=== PATIENT | male | born 1995 | race African-American/Black ===

== ENCOUNTER 2016-08-18 13:36 | Emergency (ER) | payer BC ==
[~2016-08-18] VITALS: Ht 177.8 cm; Wt 75.0 kg
[~2016-08-18 13:36] MED LIST: DICL50 PO; HYDR-3533 PO
[2016-08-18 13:38] VITALS: BP 128/78; PULSE 72; RESP 16; TEMP 98; O2SAT 97
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
[2016-08-18] MEDS ORDERED: HYDR-3533 PO ×2 (14:42→14:43)
== END 2016-08-18 15:14 | disposition home or self-care (01) ==
LOC: NEPB 13:36
DX: S62.102A Fracture of unspecified carpal bone, left wrist, initial encounter for closed fracture (principal); V09.20XA Pedestrian injured in traffic accident involving unspecified motor vehicles, initial encounter; Y93.9 Activity, unspecified; Y92.89 Other specified places as the place of occurrence of the external cause; Y99.9 Unspecified external cause status
CPT/HCPCS: 29125; 73110

== ENCOUNTER 2017-09-30 11:54 | Emergency (ER) | payer BC ==
[~2017-09-30] VITALS: Ht 177.8 cm; Wt 76.0 kg
[2017-09-30 11:55] VITALS: BP 141/92; PULSE 65; RESP 16; TEMP 97.9; O2SAT 100
[2017-09-30] MEDS ORDERED: IOHEXOL 350 MG/ML 10 ML VIAL (for RAD DIAG) IVCONTRAST ONE (11:55)
[2017-09-30] MEDS ORDERED: SODIUM CHLOR 0.9% 1000 ML INJ 1,000 ML IV SCH (12:19)
[2017-09-30] MEDS ORDERED: SODIUM CHLORIDE 0.9% FLUSH 10 ML FLUSH IV FLUSH PRN (12:30)
[2017-09-30 12:50] LABS: AUTOMATED NEUTROPHIL # 2.6 TH/MM3 (1.8-7.7); BASOPHIL % 0.7 % (0.0-2.0); EOSINOPHIL # 0.3 TH/MM3 (0-0.4); EOSINOPHIL % 4.2 % (0.0-4.0); HEMATOCRIT 43.3 % (39.0-51.0); HEMOGLOBIN 14.8 GM/DL (13.0-17.0); LYMPH % 41.8 % (9.0-44.0); LYMPHOCYTE # 2.6 TH/MM3 (1.0-4.8); MEAN CELL VOLUME 85.6 FL (80.0-100.0); MEAN CORPUSCULAR HEMOGLOBIN 29.3 PG (27.0-34.0); MEAN CORPUSCULAR HGB CONC 34.2 % (32.0-36.0); MONO % 11.1 % (0.0-8.0); MONOCYTE # 0.7 TH/MM3 (0-0.9); NEUT % 42.2 % (16.0-70.0); PLATELET COUNT 270 TH/MM3 (150-450); RED BLOOD COUNT 5.06 MIL/MM3 (4.50-5.90); RED CELL DISTRIBUTION WIDTH 13.6 % (11.6-17.2); WHITE BLOOD COUNT 6.2 TH/MM3 (4.0-11.0)
--- NOTE | 2017-09-30 12:56 | PD ---
HPI Chief Complaint: ENT Complaint Time Seen by Provider: 12:12 Travel History International Travel<30 days: No Contact w/Intl Traveler<30days: No Traveled to known affect area: No History of Present Illness HPI 22-year-old -[place] male presents to the emergency department with sudden onset anterior left neck pain over the past 2 days. Patient states recent cold approximately 3 weeks ago which he worked through without seeing practitioners. 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 He states since that time the pain has become progressively worse with increased difficulty swallowing and sore throat. He denies fever, chills, or changes in his voice. He denies recent dental issue. He denies heartburn. He is able to speak in full sentences currently. He is able to swallow his own secretions. He denies any other symptoms. Pain is about a 7 out of 10. No known drug allergies PFSH Past Medical History Medical History: Denies Significant Hx Diminished Hearing: No Tetanus Vaccination: < 5 Years Influenza Vaccination: No ?: Not Past Surgical History Surgical History: No Previous Surgery Social History Alcohol Use: Yes Tobacco Use: No Substance Use: No Allergies-Medications (Allergen,Severity, Reaction): Coded Allergies: No Known Allergies (Verified Adverse Reaction, Unknown, 09/30/17) Reported Meds & Prescriptions Reported Meds & Active Scripts Active No Active Prescriptions or Reported Medications Review of Systems Except as stated in HPI: all other systems reviewed are Neg General / Constitutional: No: Fever, Chills Eyes: No: Visual changes HENT: Positive: Sore Throat, Neck Stiffness (See history of present illness), Neck Pain, No: Headaches, Vertigo, Lightheadedness, Rhinitis, Rhinorrhea, Congestion, Nosebleed, Dental Difficulties, Earache Cardiovascular: No: Chest Pain or Discomfort Respiratory: No: Shortness of Breath Gastrointestinal: No: Abdominal Pain Genitourinary: No: Dysuria Musculoskeletal: No: Pain Skin: No Rash Neurologic: No: Weakness Psychiatric: No: Depression Endocrine: No: Polydipsia Hematologic/Lymphatic: No: Easy Bruising Physical Exam Narrative GENERAL: Patient appears in mild distress. SKIN: Warm and dry. Normal color. Normal turgor. No rash. HEAD: Atraumatic. Normocephalic. EYES: Pupils equal and round. No scleral icterus. No injection or drainage. ENT: No nasal bleeding or discharge. Mucous membranes pink and moist. Teeth are in good condition. Posterior pharynx appears normal without significant swelling. Uvula is midline. No exudate. NECK: Trachea midline. Patient has point tenderness just lateral to the left voicebox, without significant swelling noted. No bruits appreciated upon auscultation. No signs Junior's angina. CARDIOVASCULAR: Regular rate and rhythm. RESPIRATORY: No accessory muscle use. Clear to auscultation. Breath sounds equal bilaterally. GASTROINTESTINAL: Abdomen soft, non-tender, nondistended. Hepatic and splenic margins not palpable. MUSCULOSKELETAL: Extremities without clubbing, cyanosis, or edema. No obvious deformities. NEUROLOGICAL: Awake and alert. No obvious cranial nerve deficits. Motor grossly within normal limits. Five out of 5 muscle strength in the arms and legs. Normal speech. PSYCHIATRIC: Appropriate mood and affect; insight and judgment normal. Data Data Last Documented VS Vital Signs Date Time Temp Pulse Resp B/P (MAP) Pulse Ox O2 Delivery O2 Flow Rate FiO2 09/30/17 11:55 97.9 65 16 141/92 (108) 100 Room Air Orders Orders Complete Blood Count With Diff (09/30/17 12:19) Comprehensive Metabolic Panel (09/30/17 12:19) Iv Access Insert/Monitor (09/30/17 12:19) Ecg Monitoring (09/30/17 12:19) Oximetry (09/30/17 12:19) Sodium Chlor 0.9% 1000 Ml Inj (Ns 1000 M (09/30/17 12:19) Sodium Chloride 0.9% Flush (Ns Flush) (09/30/17 12:30) Ct Soft Tiss Neck W Iv Cont (09/30/17 12:19) Iohexol 350 Inj (Omnipaque 350 Inj) (09/30/17 11:55) Labs Laboratory Tests Test 09/30/17 12:35 White Blood Count 6.2 TH/MM3 Red Blood Count 5.06 MIL/MM3 Hemoglobin 14.8 GM/DL Hematocrit 43.3 % Mean Corpuscular Volume 85.6 FL Mean Corpuscular Hemoglobin 29.3 PG Mean Corpuscular Hemoglobin Concent 34.2 % Red Cell Distribution Width 13.6 % Platelet Count 270 TH/MM3 Mean Platelet Volume 8.0 FL Neutrophils (%) (Auto) 42.2 % Lymphocytes (%) (Auto) 41.8 % Monocytes (%) (Auto) 11.1 % Eosinophils (%) (Auto) 4.2 % Basophils (%) (Auto) 0.7 % Neutrophils # (Auto) 2.6 TH/MM3 Lymphocytes # (Auto) 2.6 TH/MM3 Monocytes # (Auto) 0.7 TH/MM3 Eosinophils # (Auto) 0.3 TH/MM3 Basophils # (Auto) 0.0 TH/MM3 CBC Comment DIFF FINAL Differential Comment Blood Urea Nitrogen 20 MG/DL Creatinine 1.02 MG/DL Random Glucose 100 MG/DL Total Protein 7.3 GM/DL Albumin 4.1 GM/DL Calcium Level 9.1 MG/DL Alkaline Phosphatase 50 U/L Aspartate Amino Transf (AST/SGOT) 31 U/L Alanine Aminotransferase (ALT/SGPT) 35 U/L Total Bilirubin 0.8 MG/DL Sodium Level 140 MEQ/L Potassium Level 3.7 MEQ/L Chloride Level 105 MEQ/L Carbon Dioxide Level 28.5 MEQ/L Anion Gap 7 MEQ/L Estimat Glomerular Filtration Rate 109 ML/MIN [facility] Medical Decision Making Medical Screen Exam Complete: Yes Emergency Medical Condition: Yes Differential Diagnosis Anterior neck pain. Neck abscess. Muscle strain. Dissection. Narrative Course Patient appears medically stable at time of exam. There is no respiratory distress. IV access is obtained in labs ordered including CBC, and CMP. Soft tissue CT of the neck is ordered with IV contrast. CBC is unremarkable. CMP is unremarkable CT of the neck shows no obvious abscess or lymphadenopathy. It is notable that he has a right maxillary sinusitis. Patient will be treated with amoxicillin 875 twice daily 10 days. Patient also given ibuprofen 800 mg 3 times daily #30 Patient also given Flonase nasal spray 2 sprays each nostril daily. Diagnosis Primary Impression: Neck pain on left side Additional Impression: Sinusitis, acute maxillary Qualified Codes: J01.00 - Acute maxillary sinusitis, unspecified Referrals: Primary Care Physician Patient Instructions: General Instructions, Postnasal Drip (DC), Sinusitis (ED) Additional Instructions: CBC is unremarkable. CMP is unremarkable CT of the neck shows no obvious abscess or lymphadenopathy. It is notable that he has a right maxillary sinusitis. Patient will be treated with amoxicillin 875 twice daily 10 days. Patient also given ibuprofen 800 mg 3 times daily #30 Patient also given Flonase nasal spray 2 sprays each nostril daily. Med/Other Pt SpecificInfo: Prescription(s) given Scripts No Active Prescriptions or Reported Meds Disposition: 01 DISCHARGE HOME Condition: Stable Gabe Morrissey Sep 30, 2017 12:56
[2017-09-30 13:26] LABS: ALBUMIN 4.1 GM/DL (3.4-5.0); AST (GOT) 31 U/L (15-37); BICARBONATE 28.5 MEQ/L (21.0-32.0); BLOOD UREA NITROGEN 20 MG/DL (7-18); CALCIUM 9.1 MG/DL (8.5-10.1); CHLORIDE 105 MEQ/L (98-107); CREATININE 1.02 MG/DL (0.60-1.30); GLOMERULAR FILTRATION RATE 109 ML/MIN (>89); GLUCOSE,RANDOM 100 MG/DL (74-106); SODIUM (NA) 140 MEQ/L (136-145)
[2017-09-30 13:29] LABS: ALKALINE PHOSPHATASE 50 U/L (45-117); ALT (GPT) 35 U/L (12-78); TOTAL BILIRUBIN ADULT 0.8 MG/DL (0.2-1.0); TOTAL PROTEIN 7.3 GM/DL (6.4-8.2)
--- NOTE | 2017-09-30 14:19 | RADRPT ---
EXAM DATE/TIME: 09/30/2017 13:43 [facility] COMPARISON: No previous studies available for comparison. INDICATIONS : Left sided lump on upper neck region. IV CONTRAST: 70 cc Omnipaque 350 (iohexol) IV RADIATION DOSE: 14.12 CTDIvol (mGy) MEDICAL HISTORY : None SURGICAL HISTORY : None. ENCOUNTER: Initial ACUITY: 2 days PAIN SCALE: 7/10 LOCATION: Left upper neck region. TECHNIQUE: Volumetric scanning of the neck was performed. Using automated exposure control and adjustment of th e mA and/or kV according to patient size, radiation dose was kept as low as reasonably achievable to obtain optimal diagnostic quality images. DICOM format image data is available electronically for r eview and comparison. FINDINGS: NASOPHARYNX: The nasopharyngeal airway has a normal configuration. No mucosal thickening or mass is seen. OROPHARYNX: The intrinsic muscles of the tongue are symmetric. The tonsillar pillars are intact. The prevertebr al soft tissues are not thickened. LARYNX: The supraglottic, glottic, and infraglottic structures are intact. PARAPHARYNGEAL: The parapharyngeal space is intact. SALIVARY GLANDS: The parotid and submandibular glands are intact. LYMPH NODES: No enlarged or necrotic-appearing nodes. THYROID: Homogeneous enhancement without evidence of nodule. BONES: Unremarkable. Mild mucosal thickening involving the right maxillary sinus without air-fluid level. CONCLUSION: 1. No mass or adenopathy. 2. Mild chronic right maxillary sinus disease. Srinivasan Falk Jr., MD on September 30, 2017 at 14:14 Board Certified Radiologist. This report was verified electronically.
[2017-09-30] MEDS ORDERED: FLUT1SPR5 EACH NARE (14:45)
[2017-09-30] MEDS ORDERED: IBUP1TAB7 PO (14:45)
[2017-09-30] MEDS ORDERED: AMOX875T PO (14:45)
[2017-09-30 15:01] VITALS: BP 124/75
== END 2017-09-30 15:10 | disposition home or self-care (01) ==
LOC: NEPD 11:54
DX: M54.2 Cervicalgia (principal); J01.00 Acute maxillary sinusitis, unspecified; X50.0XXA Overexertion from strenuous movement or load, initial encounter
CPT/HCPCS: 70491; 80053; 85025; 96360; 99284; J7030; Q9967